=== PATIENT | female | born 1990 | race African-American/Black ===

== ENCOUNTER → 2019-04-08 | Outpatient (CLI) | payer OTHER ==
--- NOTE | 2019-04-08 17:24 | CONS ---
Assessment/Plan Assessment/Plan Hospital Course (Demo Recall) This is a 28-year-old female who has left greater trochanteric bursitis. This may be related to her leg length discrepancy. Despite the patient feeling that her left leg is longer the bone length study today does demonstrate that the right lower extremity is approximately 1.7 cm longer. Pelvis does have an obliquity to compensate for this. However it does not fully compensate as the apparent leg length discrepancy remains 0.8 cm with the right still being longer. This time recommending physical therapy and NSAID regiment with meloxicam. Additional recommending an [id number] shoe lift. The patient should trial multiple sizes to find which one works the best. I recommend to start with 1/8 inch thickness. Follow-up PRN Consultation Date/Type/Reason Admit Date/Time Date of Consultation: April 08, 2019 Reason for Consultation Left hip pain Date/Time of Note DATE: 04/08/19 TIME: 17:10 Hx of Present Illness This is a 28-year-old female who presents with a history of left hip pain. Patient states the pain is in the lateral aspect of the hip. Patient states left leg feels longer than right leg at times she does have occasional short- lived groin pain. The pain does not radiate to the knee. It is described as sharp at times and as a dull ache. The pain is rated as a 7/10 with activity and 5/10 at rest. Walking tolerance is 24 blocks. No external support. The patient does admit to a limp. It is difficult to sleep on the affected side at night secondary to pain. There are no symptoms to suggest referred pain from the back with radi cular symptoms. Treatment to date has included oral anti-inflammatories, activity modification. The patient states that treatment to date has not provided adequate relief of symptoms, prompting consultation. Duration: 2 months Injury: No Walking tolerance: 24 blocks Limp: Yes Support: No Stairs: Uses normal Physical Therapy: No Injections: No NSAID's: Ibuprofen Prior surgery: No Back pain: Yes Knee pain: No Risk of AVN : No Patient denies fever, chills, shortness of breath, chest pain, nausea/vomiting, constipation, diarrhea, numbness, and tingling. Past Medical History Medical History: no pertinent history Past Surgical History Eye surgery Family History Significant Family History: no pertinent family hx Social History Alcohol Use: rarely Smoking Status: Never smoker Drug Use: none Exam/Review of Systems Exam Vitals Weight: 94 pound Height: 5 foot Temperature: 98.0 Heart Rate: 84 Blood Pressure: 117/71 Respiratory Rate: 14 Exam General: Alert, oriented. Vital signs: Noted on the chart. Heart: Regular rate and rhythm. Lungs: No respiratory distress. No accessory muscle use. Musculoskeletal: Left lower extremity Well developed female in no apparent distress. Gait demonstrates a mild Trendelenburg with antalgic components and a short leg component. Standing, the pelvis is oblique and supine there and apparent leg length discrepancy of 0.5 cm with the left lower extremity longer. There is tenderness over trochanteric bursa. IT band nontender to palpation Negative Obers Test Range of motion: Flexion: 130 Extension: 0 Internal rotation: 30 External rotation: 60 Abduction: 60 Adduction: 30 Sitting there is no significant pelvic obliquity. Minimal to no pain at the extremes of motion of the affected hip. Skin was intact throughout both lower extremities. Sensation intact to light touch in a sural, saphenous, deep peroneal, superficial peroneal, medial and lateral plantar nerve distribution. Neurovascular exam showed 5/5 strength in the abductors, quads, EHL/tibialis anterior/gastroc. Normal and symmetrical pulses were palpated in both the dorsalis pedis and posterior tibial arteries. There is no sign of venous stasis. Using wooden blocks patient feels most even with a 1/8 inch block under her right foot. Imaging Imaging The patient received a full set of films and personally reviewed by myself today in clinic including an AP pelvis and an AP and lateral of the affected hip. The hip is reduced. There is no loss of joint space. There is no osteophyte formation. There is no subchondral sclerosis. There are no subchondral cysts. There is no significant deformity of the the proximal femur, femoral neck, or acetabulum. The pelvis is in continuity. Bone quality radiographically: Good Normal hip x-rays Scanogram for long length study was obtained in clinic today and personally reviewed. Study demonstrates that the right lower extremity is approximately 1.7 cm longer than the left. The pelvis is oblique to compensate for this. Apparent leg length discrepancy on scanogram is approximately 0.8 centimeter with the right leg being longer BLANCA ARAGON MD April 08, 2019 17:22
--- NOTE | 2019-04-12 11:42 | RADRPT ---
PROCEDURE: XR Pelvis and left Hip. CLINICAL INDICATION: Left hip pain TECHNIQUE: Three views of the pelvis and left hip are available for review. COMPARISON: No prior studies are available for comparison. FINDINGS: The osseous structures demonstrate normal alignment and mineralization. No acute fracture or disloca tion is seen. No radiopaque foreign body is identified. The sacroiliac joints, as visualized, are gr ossly unremarkable. No joint space abnormality is identified. IMPRESSION: 1. Unremarkable x-ray pelvis and left hip. RPTAT: HH .Pema Solorzano MD, MD Date Time Electronically viewed and signed by .Pema Solorzano MD, on 04/12/2019 11:41 .G/
--- NOTE | 2019-04-12 11:43 | RADRPT ---
PROCEDURE: Lower extremity x-ray CLINICAL INDICATION: Leg length discrepancy TECHNIQUE: A ruler was placed alongside the patient, and AP images of the hips, knees, and ankles w ere obtained. Measurements were obtained at the superior margin of the femoral head, the medial femor al condyle, and the tibial plafond. COMPARISON: No prior exam is available for comparison. FINDINGS: The right femur measures 51 cm from the right femoral head to the medial femoral condyle. The left f emur measures 51 cm from the left femoral head to the medial femoral condyle. The right tibia measur es 38 cm from the right medial femoral condyle to the tibial plafond. The left tibia measures 37.5 c m from the left medial femoral condyle to the tibial plafond. The right lower extremity measures approximately 89 cm. The left lower extremity measures approximat alondra 88.5 cm. IMPRESSION: No significant leg length discrepancy. RPTAT: HH .Pema Solorzano MD, MD Date Time Electronically viewed and signed by .Pema Solorzano MD, on 04/12/2019 11:43 .G/
== END | disposition home or self-care (01) ==
LOC: HKI 14:48
PROVIDERS: ATTEND Orthopaedic Surgery Adult Reconstructive Orthopaedic Surgery
DX: M25.552 Pain in left hip (principal); M70.62 Trochanteric bursitis, left hip
CPT/HCPCS: 73502; 77073; Z7500; G0463